=== PATIENT | female | born 1950 | race Caucasian/White ===

== ENCOUNTER → 2016-12-17 | Outpatient (CLI) | payer MEDICARE, BC ==
--- NOTE | 2016-12-18 07:05 | MM ---
Reason for exam: screening (asymptomatic). Last mammogram was performed 1 year ago. History: Patient is postmenopausal. Family history of breast cancer in daughter at age 40. Physical Findings: A clinical breast exam by your physician is recommended on an annual basis and results should be correlated with mammographic findings. MG 3D Screening Mammo W/Cad Bilateral CC and MLO view(s) were taken. Prior study comparison: December 15, 2015, right breast MG 3d work up w/cad RT. December 06, 2015, bilateral MG screening mammo w CAD. There are scattered fibroglandular densities. Finding: There are typically benign vascular, round calcifications in both breasts. There is no discrete abnormality. ASSESSMENT: Benign, BI-RAD 2 RECOMMENDATION: Routine screening mammogram of both breasts in 1 year.
== END | disposition home or self-care (01) ==
LOC: RADMAMWWP 10:57
PROVIDERS: ATTEND Family Medicine
DX: Z12.31 Encounter for screening mammogram for malignant neoplasm of breast (principal)
CPT/HCPCS: 77063; G0202

== ENCOUNTER → 2016-12-20 | Outpatient (CLI) | payer MEDICARE, BC ==
--- NOTE | 2016-12-20 13:12 | BD ---
EXAMINATION TYPE: MG DEXA axial skeleton. DATE OF EXAM: 12/20/2016 10:29 AM COMPARISON: NONE CLINICAL HISTORY: Height: 60 Weight: 221.0 FRAX RISK QUESTIONS: Alcohol (3 or more units per day): NO Family History (Parent hip fracture): YES-MOTHER Glucocorticoids (More than 3mos): NO (Ex: prednisone, prednisolone, methylprednisolone, dexamethasone, and hydrocortisone). History of Fracture in Adulthood: YES Secondary Osteoporosis: 1. Type 1 Diabetes: NO 2. Hyperthyroidism: NO 3. Menopause before 45: NO 4. Malnutrition: NO 5. Chronic liver disease: NO Rheumatoid Arthritis: NO Current Tobacco Use: NO RISK FACTORS HISTORY OF: Hip Fracture (Right/Left): NO Spine Fracture: NO History of Wrist Fracture: NO Surgery to Spine/Hip(right/left)/Wrist (right/left): YES-SPINE When: Family History of Osteoporosis: YES Active: YES Diet low in dairy products/other sources of calcium: YES Postmenopausal woman: AROUND AGE 47 Lost more than 2 inches in height since high school: YES Frequent falls: NO Adrenal Insufficiency: NO MEDICATIONS: TIDMOLOI, MYREBETRIQUE, CATFLAM, GLUCOPHAGE, LISINOPRIL, ZESTAREADY, METFORMIN, EYEDROPS Additional History: LUMBAR SPINE SURGERY X2 EXAM MEASUREMENTS: Bone mineral densitometry was performed using the [employer] System. Bone mineral density about the R hip (g/cm2): 0.733 Bone mineral density about the L hip (g/cm2): 0.705 T Score values are as follows: -----R Neck: -2.2 -----L Neck: -2.4 -----R Intertrochanter: -1.6 -----L Intertrochanter: -2.3 Bone mineral density BASELINE IMPRESSION: Osteopenia (T Score between -2.5 and -1 as noted by T score values There is slightly increased risk of fracture and the patient may be considered for treatment. Re-Screen 1-2 years. NOTE: T-SCORE=SD OF THE YOUNG ADULT MEAN.
== END | disposition home or self-care (01) ==
LOC: RADBDWWP 09:59
PROVIDERS: ATTEND Family Medicine
DX: M85.80 Other specified disorders of bone density and structure, unspecified site (principal); Z78.0 Asymptomatic menopausal state
CPT/HCPCS: 77080

== ENCOUNTER → 2017-07-07 | Outpatient (CLI) | payer MEDICARE, BC ==
[~2017-07-07] MED LIST: REGADENOSON 0.4 MG/5 ML SYRINGE IV ONE
--- NOTE | 2017-07-07 11:52 | P.STRESS ---
- Stress Test Note Stress Test Results/Findings: Exam Performed: NM stress lexiscan cardiolite Exam Date: 07/07/17 Reason for Exam: ABN EKG Height: 5 ft 1 in Weight: 97.522 kg Protocol: LEXISCAN CARDIOLITE Stage: Duration of Exercise: 5:00 Resting Heart Rate: 57 Resting Blood Pressure: 95/69 Maximum Achieved Heart Rate: 94 Maximum Achieved Blood Pressure: 113/65 85% PMHR: 129 100% PMHR: 152 METS: Technologist Comment: Stress Test Results/Findings: This is a 67-year-old female being evaluated for cardiac status because of hypertension, diabetes, hypercholesteremia, and family history. An EKG showed sinus rhythm with poor R-wave progression in the anterior leads and nonspecific ST-T abnormalities. A standard dose of Lexiscan was infused. EKGs did not reveal any change of ischemia. Nuclear images to be reported by radiologist. Final impression: #1. Negative legs and stress test #2. Report on the nuclear images to begin with the radiologist.
--- NOTE | 2017-07-07 12:27 | NM ---
EXAMINATION TYPE: NM stress lexiscan cardiolite DATE OF EXAM: 07/07/2017 COMPARISON: NONE HISTORY: Abnormal EKG TECHNIQUE: After the intravenous administration of 11.21 mCi Tc 99m Sestamibi - Cardiolite resting S PECT images acquired 60 minutes post injection. The patient received 0.4mg Lexiscan, 26.5 mCi Tc 99m Sestamibi - Stress images obtained [address] injection FINDINGS: Review of stress and rest SPECT images demonstrates no distinct perfusion abnormality. Gated analysi s shows normal wall motion with an estimated left ventricular ejection fraction of 71 %. IMPRESSION: No scintigraphic evidence for reversible ischemia.
== END | disposition home or self-care (01) ==
LOC: RADNMMAIN 08:20
PROVIDERS: ATTEND Family Medicine
DX: R94.31 Abnormal electrocardiogram [ECG] [EKG] (principal)
CPT/HCPCS: 93017; 78452; A9500; J2785

== ENCOUNTER → 2018-03-17 | Outpatient (CLI) | payer MEDICARE, BC ==
--- NOTE | 2018-03-18 10:59 | MM ---
Reason for exam: screening (asymptomatic). Last mammogram was performed 1 year and 3 months ago. History: Patient is postmenopausal. Family history of breast cancer in daughter at age 40. Physical Findings: A clinical breast exam by your physician is recommended on an annual basis and results should be correlated with mammographic findings. MG 3D Screening Mammo W/Cad Bilateral CC and MLO view(s) were taken. Prior study comparison: December 17, 2016, bilateral MG 3d screening mammo w/cad. December 15, 2015, right breast MG 3d work up w/cad RT. There are scattered fibroglandular densities. Finding: There are dystrophic calcifications in the upper outer quadrant of the left breast. No suspicious abnormality. No significant changes in finding since December 17, 2016 and December 15, 2015. ASSESSMENT: Benign, BI-RAD 2 RECOMMENDATION: Routine screening mammogram of both breasts in 1 year.
== END | disposition home or self-care (01) ==
LOC: RADMAMWWP 11:07
PROVIDERS: ATTEND Family Medicine
DX: Z12.31 Encounter for screening mammogram for malignant neoplasm of breast (principal)
CPT/HCPCS: 77063; 77067

== ENCOUNTER → 2019-06-14 | Outpatient (CLI) | payer MEDICARE, BC ==
--- NOTE | 2019-06-14 13:05 | US ---
EXAMINATION TYPE: US kidneys/renal and bladder DATE OF EXAM: 06/14/2019 COMPARISON: NONE CLINICAL HISTORY: N28.9 Disorder of kidney and ureter, unspecified. EXAM MEASUREMENTS: Right Kidney: 9.6 x 4.1 x 3.7 cm Left Kidney: 8.7 x 4.8 x 4.2 cm Post Void Residual Volume: 6.4 mL Right Kidney: inferior pole cortical cyst = 1.2 x 1.6 x 1.1cm Left Kidney: No hydronephrosis or masses seen; smaller than right kidney Bladder: not fully distended after full water intake for preparation Bilateral Jets seen: not seen after 3 minute observation Normal Post Void Residual: yes There is no evidence for hydronephrosis at this point in time. No nephrolithiasis is seen. The urin heather bladder is anechoic. IMPRESSION: 1. Slight asymmetric size of the kidneys, left smaller than right. 2. No hydronephrosis or nephrolithiasis of either kidney. 3. Simple appearing right renal cortical cyst (Bosniak type I).
== END ==
LOC: RADUSWWP 11:54
PROVIDERS: ATTEND Family Medicine
DX: N28.1 Cyst of kidney, acquired (principal); N28.89 Other specified disorders of kidney and ureter
CPT/HCPCS: 76770

== ENCOUNTER → 2020-01-19 | Outpatient (CLI) | payer MEDICARE, BC ==
--- NOTE | 2020-01-19 11:05 | MM ---
Reason for exam: screening (asymptomatic). Last mammogram was performed 1 year and 10 months ago. History: Patient is postmenopausal. Family history of breast cancer in daughter at age 40. Physical Findings: A clinical breast exam by your physician is recommended on an annual basis and results should be correlated with mammographic findings. MG 3D Screening Mammo W/Cad Bilateral CC and MLO view(s) were taken. Prior study comparison: March 17, 2018, bilateral MG 3d screening mammo w/cad. December 17, 2016, bilateral MG 3d screening mammo w/cad. There are scattered fibroglandular densities. Benign appearing bilateral calcifications. No suspicious abnormality. No significant changes when compared with prior studies. ASSESSMENT: Benign, BI-RAD 2 RECOMMENDATION: Routine screening mammogram of both breasts in 1 year.
== END | disposition home or self-care (01) ==
LOC: RADMAMWWP 07:56
PROVIDERS: ATTEND Family Medicine
DX: Z12.31 Encounter for screening mammogram for malignant neoplasm of breast (principal)
CPT/HCPCS: 77063; 77067

== ENCOUNTER → 2020-10-16 | Outpatient (CLI) | payer MEDICARE, BC ==
--- NOTE | 2020-10-17 07:16 | BD ---
EXAMINATION TYPE: Axial Bone Density DATE OF EXAM: 10/16/2020 COMPARISON: NONE CLINICAL HISTORY: Postmenopausal female. Height: 60 Weight: 205.1 FRAX RISK QUESTIONS: Alcohol (3 or more units per day): no Family History (Parent hip fracture): yes Glucocorticoids (More than 3mos): no (Ex: prednisone, prednisolone, methylprednisolone, dexamethasone, and hydrocortisone). History of Fracture in Adulthood: yes Secondary Osteoporosis: 1. Type 1 Diabetes: no 2. Hyperthyroidism: no 3. Menopause before 45: no 4. Malnutrition: no 5. Chronic liver disease: no Rheumatoid Arthritis: no Current Tobacco Use: no RISK FACTORS HISTORY OF: Surgery to Spine/Hip(right/left)/Wrist (right/left): spine surgery When: Family History of Osteoporosis: yes Active: yes Diet low in dairy products/other sources of calcium: yes Postmenopausal woman: age 47 Lost more than 2 inches in height since high school: yes MEDICATIONS: lisinopril Additional History: EXAM MEASUREMENTS: Bone mineral densitometry was performed using the [employer] System. Bone mineral density about the R hip (g/cm2): 0.766 Bone mineral density about the L hip (g/cm2): 0.706 T Score values are as follows: -----R Neck: -2.0 -----L Neck: -2.4 -----R Total: -1.4 -----L Total: -1.6 Bone mineral density has: decreased -1.3 % since study of: 12.20.2016 Bone mineral density about the R Wrist (g/cm2): 0.599 T Score values are as follows: -----Dist. R+U: -1.3 -----Prox. R+U: -0.9 -----Radius total: -1.2 Bone mineral density : baseline IMPRESSION: Osteopenia (T Score between -2.5 and -1). There is slightly increased risk of fracture and the patient may be considered for treatment. Re-Screen 2-5 years. NOTE: T-SCORE=SD OF THE YOUNG ADULT MEAN.
== END | disposition home or self-care (01) ==
LOC: RADBDWWP 14:15
PROVIDERS: ATTEND Family Medicine
DX: M85.80 Other specified disorders of bone density and structure, unspecified site (principal); Z78.0 Asymptomatic menopausal state
CPT/HCPCS: 77080

== ENCOUNTER → 2025-05-05 | Outpatient (CLI) | payer MEDICARE, BC ==
--- NOTE | 2025-05-05 13:30 | MM ---
Reason for Exam: Screening (asymptomatic). Last mammogram was performed 2 year(s) and 3 month(s) ago. Patient History: Menarche at age 13. First Full-Term at age 18. Postmenopausal. Daughter had breast cancer, age 40. Risk Values: Estrella 5 year model risk: 3.0%. NCI Lifetime model risk: 6.0%. Prior Study Comparison: 03/17/2018 Bilateral Screening Mammogram, [facility]. 01/19/2020 Bilateral Screening Mammogram, [facility]. 01/08/2023 Bilateral MG 3D screening mammo w/cad, [facility]. Tissue Density: There are scattered areas of fibroglandular density. Findings: Analyzed By CAD. Right breast: There is no suspicious group of microcalcifications or new suspicious mass. Left breast: There is no suspicious group of microcalcifications or new suspicious mass. Overall Assessment: Negative, BI-RAD 1 Management: Screening Mammogram of both breasts in [address] [facility] will attempt to contact patient to return for supplemental views and ultrasound if indicated. Patient should continue monthly self-breast exams. A clinical breast exam by your physician is recommended on an annual basis. This exam should not preclude additional follow-up of suspicious palpable abnormalities. Note on Estrella scores and lifetime risk: 1. A Estrella score greater than 3% is considered moderate risk. If this is the case, consider specialist referral to assess eligibility for a risk reducing agent. 2. If overall lifetime risk for the development of breast cancer is 20% or higher, the patient may qualify for future screening with alternating mammogram and breast MRI. [facility], , 05/05/2025 1:27 PM. Electronically signed and approved by: Bismark Ravi DO
--- NOTE | 2025-05-05 15:26 | BD ---
EXAMINATION TYPE: Axial Bone Density DATE OF EXAM: 05/05/2025 CLINICAL HISTORY: 75 years old Female. ICD-10 CODE: M85.89 DISORDERS OF BONE DENSITY , Additional H istory: Height: 59.8 Weight: 214 FRAX RISK QUESTIONS: Family History (Parent hip fracture): yes History of Fracture in Adulthood: yes Secondary Osteoporosis: yes 3. Menopause before 45: yes, at 43 RISK FACTORS height loss, frequent falling, poor health HISTORY OF: HX OF LEFT KNEE FX, AND LEFT ANKLE, Surgery to SpineHX OF SURG X2 TO LOWER BACK, 2011 AND PRIOR MEDICATIONS: bladder meds, bp meds, cholesterol, eye drops, VIT D EXAM MEASUREMENTS: Bone mineral densitometry was performed using the [employer] System. spinal surgery with hardware, no fxs spine not scanned. Bone mineral density about the R hip (g/cm2): 0.782 Bone mineral density about the L hip (g/cm2): 0.767 T Score values are as follows: -----R Neck: -2.5 -----L Neck: -2.5 -----R Total: -1.8 -----L Total: -1.9 Z Score values are as follows: -----R Neck: -1.2 -----L Neck: -1.2 -----R Total: -0.8 -----L Total: -0.9 Bone mineral density has: Decreased -0.9% since study of: 01.08.2023 FRAX%s: The graph provided illustrates a 28.9% chance for a major osteoporotic fx and a 18.9% chance for the hips probability for fx in 10 years time. IMPRESSION: Osteoporosis (T Score less than -2.5). There is increased fracture risk and therapy is usually indicated based on age. Re-Screen 1-2 years. NOTE: T-SCORE=SD OF THE YOUNG ADULT MEAN. [facility], , 05/05/2025 3:24 PM
== END | disposition home or self-care (01) ==
LOC: RADBDWWP 10:20
PROVIDERS: ATTEND Family Medicine
DX: Z12.31 Encounter for screening mammogram for malignant neoplasm of breast (principal); R92.323 Mammographic fibroglandular density, bilateral breasts; Z78.0 Asymptomatic menopausal state; Z80.3 Family history of malignant neoplasm of breast; M81.0 Age-related osteoporosis without current pathological fracture
CPT/HCPCS: 77063; 77067; 77080